=== PATIENT | male | born 1950 | race Caucasian/White ===

== ENCOUNTER 2020-03-10 08:18 | Inpatient (IN) | payer MEDICARE, BC ==
[2020-03-10] VITALS (12 sets, daily range): BP systolic 75–117; BP diastolic 33–70
[~2020-03-10] VITALS: Ht 185.4 cm; Wt 155.1 kg
--- NOTE | 2020-03-10 08:33 | NUR ---
PT REC'D TO ER VIA EMS PT SINCE 0500 THIS MORNING COUGHING UP COFFEE GROUND AND STOOLS DARK RED , PRE DIABETIC AND HAS A STENT ON ELIQUIS.LEFT AC IV INFUSING NS AWAITING EVALUATION BY ER PROVIDER.
--- NOTE | 2020-03-10 08:43 | NUR ---
PT HAS SLEEP APNEA CPAP +. ACCU CK 260
[2020-03-10 08:58] LABS: BASOPHILS # (AUTO) 0.2 /CMM (0.0-0.2); BASOPHILS % (AUTO) 1.2 % (0.0-2.0); HEMATOCRIT 31 % (39-51); HEMOGLOBIN 9.5 g/dL (13.5-17.5); LYMPHOCYTES # (AUTO) 1.2 /CMM (0.8-4.8); LYMPHOCYTES % (AUTO) 6.8 % (20.0-44.0); MEAN CORPUSCULAR HGB CONC 31 g/dl (31.0-36.0); MEAN CORPUSCULAR VOLUME 90 fL (80-96); MONOCYTES # (AUTO) 0.5 /CMM (0.1-1.30); MONOCYTES % (AUTO) 2.8 % (2.0-12.0); NEUTROPHILS # (AUTO) 15.3 /CMM (1.8-8.9); NEUTROPHILS % (AUTO) 89.2 % (43.0-81.0); PLATELET COUNT (AUTO) 290 /CMM (150-450); RED BLOOD CELL COUNT(AUTO) 3.41 MIL/uL (4.5-6.0); WHITE BLOOD COUNT (AUTO) 17.1 K/uL (4.3-11.0)
[2020-03-10] MEDS ORDERED: ONDANSETRON HCL/PF 4 MG/2 ML VIAL ONE ×2 (08:59→10:32)
[2020-03-10] MEDS ORDERED: OCTREOTIDE 1,250 MCG in IV NS 0.9% 250 ML IV ONE (09:00)
[2020-03-10] MEDS ORDERED: PANTOPRAZOLE 80 MG in IV NS 0.9% 100 ML IV ONE (09:00)
[2020-03-10] MEDS ORDERED: PANTOPRAZOLE 80 MG in IV NS 0.9% 500 ML IV ONE (09:00)
[2020-03-10] MEDS ORDERED: IV NS 0.9% 1,000 ML BAG IV ONE (09:00)
[2020-03-10] MEDS ORDERED: ONDANSETRON HCL/PF 4 MG/2 ML VIAL IVP ONE (09:00)
[2020-03-10] MEDS ORDERED: OCTREOTIDE 50 MCG/ML AMPUL IV ONE (09:00)
[2020-03-10] MEDS ORDERED: AMIO200T5 PO (09:03)
[2020-03-10] MEDS ORDERED: FINA1TAB PO (09:03)
[2020-03-10] MEDS ORDERED: FEBU40TA PO (09:03)
[2020-03-10] MEDS ORDERED: COLC0.6C3 PO (09:03)
[2020-03-10] MEDS ORDERED: MAGN400T8 PO (09:03)
[2020-03-10] MEDS ORDERED: APIX5TAB PO (09:03)
[2020-03-10] MEDS ORDERED: CYAN100096 PO (09:03)
[2020-03-10] MEDS ORDERED: THYR60TA30 PO (09:03)
[2020-03-10] MEDS ORDERED: METH500T4 PO (09:03)
[2020-03-10] MEDS ORDERED: ASPI-1169 PO (09:03)
[2020-03-10] MEDS ORDERED: CHOL500062 PO (09:03)
[2020-03-10] MEDS ORDERED: POTA-88 PO (09:03)
[2020-03-10] MEDS ORDERED: METO2.5T2 PO (09:03)
[2020-03-10] MEDS ORDERED: ATOR80TA PO (09:03)
[2020-03-10] MEDS ORDERED: FURO80TA3 PO (09:03)
[2020-03-10 09:10] LABS: CREATININE 1.6 mg/dL (0.6-1.3); POTASSIUM 4.9 mmol/L (3.5-5.1)
[2020-03-10 09:16] LABS: BILIRUBIN,DIRECT 0.2 mg/dL (0.0-0.2); BILIRUBIN,TOTAL 0.4 mg/dL (0.2-1.0); TOTAL PROTEIN, SERUM 5.7 g/dL (6.4-8.2)
--- NOTE | 2020-03-10 09:33 | NUR ---
CALLED GI DR. SHANKS LEFT MSG. [phone]
--- NOTE | 2020-03-10 10:01 | NUR ---
[facility] CALLED BELT FIXER PAGED.
--- NOTE | 2020-03-10 10:11 | NUR ---
pt stated feeling better hct 9.5
[2020-03-10] MEDS ORDERED: MORPHINE SULFATE INJ 2 MG/ML DISP.SYRIN IV ONE (11:00)
[2020-03-10] MEDS ORDERED: MORPHINE SULFATE INJ 2 MG/ML DISP.SYRIN IV PRN (11:00)
[2020-03-10] MEDS ORDERED: MORPHINE SULFATE INJ 4 MG/ML DISP.SYRIN ONE (11:00)
[2020-03-10] MEDS ORDERED: MAG HYDROX/AL HYDROX/SIMETH 30 ML UDC PO PRN (11:00)
[2020-03-10] MEDS ORDERED: Z GUARD REMEDY 2 OZ OINT TP PRN (11:00)
[2020-03-10] MEDS ORDERED: MAGNESIUM HYDROXIDE 30 ML UDC PO PRN (11:00)
[2020-03-10] MEDS ORDERED: ZOLPIDEM TARTRATE 5 MG TABLET PO PRN (11:00)
[2020-03-10] MEDS ORDERED: ONDANSETRON HCL/PF 4 MG/2 ML VIAL IVP PRN (11:00)
[2020-03-10] MEDS ORDERED: IV D5/0.45 NACL 1,000 ML IV PRN (11:00)
[2020-03-10] MEDS ORDERED: ACETAMINOPHEN 325 MG TABLET PO PRN (11:00)
[2020-03-10] MEDS ORDERED: HYDROCODONE/APAP 5/325MG TABLET PO PRN (11:00)
[2020-03-10 11:10] LABS: HEMOGLOBIN 9.4 g/dL (13.5-17.5)
--- NOTE | 2020-03-10 11:11 | NUR ---
iv started left hand 20 g
--- NOTE | 2020-03-10 12:37 | NUR ---
RECEIVED CALL FROM LAB, PT IS COVID NEGATIVE
--- NOTE | 2020-03-10 12:39 | NUR ---
pt is covid 19 negitive preping for egd today
--- NOTE | 2020-03-10 12:48 | NUR ---
pt sent to gi lab for egd
[2020-03-10] MEDS ORDERED: METOCLOPRAMIDE HCL 10 MG/2 ML VIAL ONE (12:56)
--- NOTE | 2020-03-10 13:55 | NUR ---
pt had egd sent to [facility]
[2020-03-10] MEDS ORDERED: ALBUMIN 5% 250 ML IV ONE ×2 (14:29→15:10)
[2020-03-10] MEDS ORDERED: PROPOFOL 100 ML ONE ×2 (15:07→16:51)
[2020-03-10 15:38] LABS: HEMOGLOBIN 7.6 g/dL (13.5-17.5)
[2020-03-10] MEDS ORDERED: PHENYLEPHRINE 10 MG/ML VIAL ONE (16:49)
--- NOTE | 2020-03-10 17:00 | NUR ---
ICU ADMIT FROM OR REPORT RECEIVED AT BEDSIDE FROM JIMBO ZAZUETA. PATIENT UNABLE TO BE ORIENTED TO PRIMARY RN, UNIT, ROOM, BED, AND UNIT POLICIES REGARDING PATIENT CARE AND VISITING HOURS. PATIENT NOW ON CONTINUOUS TELEMETRY MONITORING; READING ON ARRIVAL IS SR WITH 1ST DEGREE AV BLOCK 64. INTUBATED ON BEDSIDE VENTILATOR: RATE 16, TV 500, 02%40 PEEP 5. CONNECTED TO BEDSIDE COMBATANT DIVER OFFICER. IV AT RH 20G PATENT. IV AT LAC 20 G RUNNING MATEO AT 3 MCG/KG/MIN/ AND PROPOFOL @60 ML/HR. PT. EYES CLOSE AND CALM. NO GRIMACE SEEN. WILL CONTINUE PLAN OF CARE. Addendum: 03/10/20 at 2123 by MARY GRACE LENNON RN PROPOFOL @60 MCG/HR
[2020-03-10] MEDS: PROPOFOL 100 ML IV PRN ×5 (17:15→23:47)
--- NOTE | 2020-03-10 17:15 | NUR ---
LETICIA SIMULATION TECH AT BEDSIDE Addendum: 03/10/20 at 2108 by MARY GRACE LENNON RN BLOOD TRANSFUSION COMMENCED
--- NOTE | 2020-03-10 17:30 | NUR ---
DR MANZANARES AT BEDSIDE
[2020-03-10 18:47] LABS: ABG BASE EXCESS -8.6 mmol/L; ABG OXYGEN SATURATION 97.3 % (92.0-98.5); ABG PCO2 35.3 mmHg (35.0-45.0); ABG PO2 116.9 mmHg (75.0-100.0); AaDO2 127.7 mmHg; COHb 0.3 % (0.5-1.5); MetHb 0.2 % (0.0-1.5); O2Hb 96.8 % (94.0-97.0); PEEP,BG 5 cm H2O; SITE, ABG Left Radial; VENT MODE, BG AC 40%; VT, ABG 500 mL
[2020-03-10] MEDS ORDERED: PHENYLEPHRINE 50 MG in IV NS 0.9% 245 ML IV PRN (19:00)
--- NOTE | 2020-03-10 19:30 | NUR ---
RN OPENING NOTES RECEIVED PT IN BED. SEDATED AND INTUBATED. ON AC 18 TV 500 FIO2 40% PEEP OF 55. PT IS NOT IN ANY DISTRESS OR EXPERIENCING ANY SOB AT THIS TIME. NSR 62 ON TELE MONITORING. CURRENTLY TRANSFUSING BLOOD, ON MATEO AT 3MCG AND PROPOFOL AT 60MCG/KG/MIN. IV SITE LEFT AC AND RIGHT HAND PATENT FLUSHED. SAFETY MEASURES IN PLACE. HOB ELEVATED SIDE RAILS UP X2 BED LOCKED IN LOWEST POSITION WILL CONTINUE TO MONITOR.
[2020-03-10] MEDS: PHENYLEPHRINE 50 MG in IV NS 0.9% 245 ML IV PRN (20:42)
[2020-03-10] MEDS ORDERED: PANTOPRAZOLE 40 MG VIAL IV SCH (21:00)
[2020-03-10] MEDS ORDERED: PANTOPRAZOLE 80 MG in IV NS 0.9% 500 ML IV SCH (21:00)
--- NOTE | 2020-03-10 21:09 | NUR ---
CHANGE OF SHIFT REPORT PT RESTING COMFORTABLY IN BED. NO S/S OR C/O PAIN OR DISTRESS NOTED. SIDE RAILS UP X2, CALL LIGHT LEFT WITHIN REACH. PT KEPT CLEAN, DRY, AND COMFORTABLE. NO SIGNIFICANT CHANGES SINCE ADMISSION. REPORT GIVEN TO LATRELL ZAZUETA.
--- NOTE | 2020-03-10 21:20 | NUR ---
REPORT GIVEN TO YOANDY ZAZUETA FOR CONTINUATION OF CARE
[2020-03-10 21:48] LABS: HEMOGLOBIN 9.9 g/dL (13.5-17.5)
[2020-03-10 22:10] LABS: THYROID STIMULATING HORMONE 0.882 uIU/mL (0.358-3.74)
--- NOTE | 2020-03-10 22:42 | NUR ---
16FR CHANDRA CATH INSERTED, DRAINING CLEAR YELLOW URINE TO GRAVITY
[2020-03-10] MEDS ORDERED: NOREPINEPHRINE 4 MG/4 ML AMPUL IV ONE (22:46)
--- NOTE | 2020-03-10 22:52 | NUR ---
PT STARTED ON LEVOPHED SINGLE STRENGTH PER TELEPHONE ORDER FROM FRANCES PAULINO D/T HYPOTENSION. STARTED AT 0.1MCG/KG/MIN.
[2020-03-10] MEDS: NOREPINEPHRINE 8 MG in IV NS 0.9% 242 ML IV PRN (22:58)
--- NOTE | 2020-03-10 23:35 | NUR ---
FRANCES PAULINO AT BEDSIDE TO JOSIE PT
[2020-03-10] MEDS: METOCLOPRAMIDE HCL 10 MG/2 ML VIAL IV SCH (23:47)
[2020-03-10] MEDS: PANTOPRAZOLE 40 MG VIAL IV SCH (23:47)
[2020-03-11] VITALS (30 sets, daily range): BP systolic 62–126; BP diastolic 44–70
[2020-03-11] MEDS: ERYTHROMYCIN 250 MG in IV NS 0.9% 100 ML IV SCH ×5 (00:02→22:31)
[2020-03-11] MEDS: PHENYLEPHRINE 50 MG in IV NS 0.9% 245 ML IV PRN ×5 (00:33→12:06)
[2020-03-11] MEDS: PROPOFOL 100 ML IV PRN ×9 (01:30→22:10)
[2020-03-11] MEDS ORDERED: PHENYLEPHRINE 10 MG/ML VIAL ONE (02:16)
[2020-03-11] MEDS ORDERED: NOREPINEPHRINE 8MG/250ML RTU 250 ML IV ONE (02:17)
--- NOTE | 2020-03-11 03:02 | NUR ---
PT HAD VERY LARGE AMOUNT OF BLACK TARRY STOOLS, SMELLED OF GI BLEED. FULL BED BATH GIVEN AND COMPLETE LINENS CHANGED.
[2020-03-11] MEDS: NOREPINEPHRINE 8 MG in IV NS 0.9% 242 ML IV PRN (03:29)
[2020-03-11] MEDS ORDERED: OCTREOTIDE 100 MCG/ML VIAL ONE (05:03)
[2020-03-11] MEDS ORDERED: OCTREOTIDE 500 MCG/ML VIAL ONE (05:03)
--- NOTE | 2020-03-11 05:30 | NUR ---
UNABLE TO SCAN MEDICATION FOR ORDER SANDOSTATIN DRIP. MED WAS UNAVAILABLE, MIXED BY ER. UNIT CHARGE NURSE MADE AWARE.
[2020-03-11] MEDS: METOCLOPRAMIDE HCL 10 MG/2 ML VIAL IV SCH ×3 (05:48→17:04)
[2020-03-11 07:01] LABS: BASOPHILS % (AUTO) 0.1 % (0.0-2.0); HEMATOCRIT 30 % (39-51); HEMOGLOBIN 9.4 g/dL (13.5-17.5); LYMPHOCYTES # (AUTO) 0.7 /CMM (0.8-4.8); LYMPHOCYTES % (AUTO) 2.8 % (20.0-44.0); MEAN CORPUSCULAR HGB CONC 32 g/dl (31.0-36.0); MEAN CORPUSCULAR VOLUME 91 fL (80-96); MONOCYTES # (AUTO) 1.6 /CMM (0.1-1.30); MONOCYTES % (AUTO) 6.4 % (2.0-12.0); NEUTROPHILS # (AUTO) 21.9 /CMM (1.8-8.9); NEUTROPHILS % (AUTO) 90.7 % (43.0-81.0); PLATELET COUNT (AUTO) 233 /CMM (150-450); RED BLOOD CELL COUNT(AUTO) 3.26 MIL/uL (4.5-6.0); WHITE BLOOD COUNT (AUTO) 24.1 K/uL (4.3-11.0)
[2020-03-11 07:28] LABS: CALCIUM, SERUM 7.8 mg/dL (8.5-10.1); CREATININE 2.1 mg/dL (0.6-1.3); MAGNESIUM 1.8 mg/dL (1.8-2.4); PHOSPHORUS 4.2 mg/dL (2.5-4.9); POTASSIUM 5.3 mmol/L (3.5-5.1)
--- NOTE | 2020-03-11 07:45 | NUR ---
RN CLOSING NOTES PT IS STILL SEDATED AND ON VENT SETTINGS BEFORE, NO CHANGES MADE. PT TOLERATING WELL NO SOB NOTED OR RESP DISTRESS. BREATHING IS EVEN AND UNLABORED AT THIS TIME. PT CURRENTLY ON MONITORING WITH NSR WITH 1ST DEGREE AV BLOCK BASELINE TO PT. PT ON PROPOFOL AT 60 MCG/KG/MIN AND LEVO AT 0.2MCG/KG/MIN AND MATEO AT 3MCG/KG/MIN. SBP KEPT WNL OF PARAMETERS ORDERED. SAFETY MEASURES IN PLACE, HOB ELEVATED SIDE RAILS UP X2, BED LOCKED IN LOWEST POSITION, REPORT GIVEN TO AM NURSE FOR CONTINUATION OF CARE
--- NOTE | 2020-03-11 08:00 | NUR ---
RN OPENING NOTES PT IS SEDATED AND ON VENT SETTINGS BEFORE, PT TOLERATING WELL NO SOB NOTED OR RESP DISTRESS. BREATHING IS EVEN AND UNLABORED AT THIS TIME. PT CURRENTLY ON MONITORING WITH NSR WITH 1ST DEGREE AV BLOCK BASELINE TO PT. PT ON PROPOFOL AT 60 MCG/KG/MIN AND MATEO AT 3MCG/KG/MIN WIH 100 CONCENTRATION PER LAB. SAFETY MEASURES IN PLACE, HOB ELEVATED SIDE RAILS UP X2, BED LOCKED IN LOWEST POSITION, WILL CONTINUE TO MONITOR
[2020-03-11 08:10] LABS: THYROID STIMULATING HORMONE 0.716 uIU/mL (0.358-3.74)
[2020-03-11] MEDS: PANTOPRAZOLE 40 MG VIAL IV SCH ×2 (08:16→22:30)
[2020-03-11] MEDS ORDERED: FURO-144 PO (08:33)
[2020-03-11] MEDS ORDERED: CARV3.122 PO (08:33)
--- NOTE | 2020-03-11 09:31 | NUR ---
RN NOTES PEEP OF 0
[2020-03-11 11:30] LABS: HEMOGLOBIN 8.8 g/dL (13.5-17.5)
[2020-03-11] MEDS: IV NS 0.9% 1,000 ML IV PRN ×3 (12:12→22:33)
[2020-03-11] MEDS ORDERED: BACITRACIN OPHTH OINT 3.5 GM TUBE ONE (12:20)
[2020-03-11] MEDS ORDERED: PHENYLEPHRINE 10 MG/ML VIAL IV SCH (12:30)
--- NOTE | 2020-03-11 12:30 | NUR ---
RN NOTES CONSENT SIGNED VERBALLY HUY CERRATO AND CONFIRMED WITH ANOTHER NURSE PAO
--- NOTE | 2020-03-11 13:45 | NUR ---
RN NOTES BP IS STABLE DUE TO MATEO OF 3 MCG. PT IS TAKEN TO OR FOR EGD WITH POSSIBLE BIOPSY
--- NOTE | 2020-03-11 16:00 | NUR ---
RN NOTES VERBAL AGREEMENT FOR PICC LINE INSERTION Tyrone MARIO
[2020-03-11] MEDS: NS 0.9% IV PRN ×2 (17:57→22:09)
[2020-03-11] MEDS: PHENYLEPHRINE IV PRN ×2 (17:57→22:09)
--- NOTE | 2020-03-11 19:54 | NUR ---
RN CLOSING NOTES PT IS STILL SEDATED AND ON VENT SETTINGS BEFORE, NO CHANGES MADE. PT TOLERATING WELL NO SOB NOTED OR RESP DISTRESS. BREATHING IS EVEN AND UNLABORED AT THIS TIME. PT CURRENTLY ON MONITORING WITH NSR WITH 1ST DEGREE AV BLOCK BASELINE TO PT. PT ON PROPOFOL AT 60 MCG/KG/MIN AND MATEO AT 3MCG/KG/MIN. SBP KEPT WNL OF PARAMETERS ORDERED. SAFETY MEASURES IN PLACE, HOB ELEVATED SIDE RAILS UP X2, BED LOCKED IN LOWEST POSITION, REPORT GIVEN TO PM NURSE FOR SHANTANU
[2020-03-11 21:20] LABS: HEMOGLOBIN 8.3 g/dL (13.5-17.5)
[2020-03-12] VITALS (27 sets, daily range): BP systolic 71–125; BP diastolic 32–54
[2020-03-12] MEDS: METOCLOPRAMIDE HCL 10 MG/2 ML VIAL IV SCH ×4 (00:44→17:23)
[2020-03-12] MEDS: NS 0.9% IV PRN ×4 (01:22→20:16)
[2020-03-12] MEDS: PHENYLEPHRINE IV PRN ×4 (01:22→20:16)
[2020-03-12] MEDS: NOREPINEPHRINE 8 MG in IV NS 0.9% 242 ML IV PRN (01:28)
[2020-03-12] MEDS ORDERED: PHENYLEPHRINE 10 MG/ML VIAL ONE (01:41)
[2020-03-12] MEDS ORDERED: NOREPINEPHRINE 4 MG/4 ML AMPUL IV ONE (01:42)
[2020-03-12] MEDS: PROPOFOL 100 ML IV PRN ×11 (02:03→22:46)
[2020-03-12] MEDS: IV NS 0.9% 1,000 ML IV PRN ×4 (03:46→19:28)
--- NOTE | 2020-03-12 04:15 | NUR ---
RN NOTES/CHARGE PT. IS ON DIPRIVAN, GOT A RESTRAINTS ORDER FROM FRANCES MCDONOUGH, ORDER NOTED AND CARRIED OUT
[2020-03-12] MEDS: ERYTHROMYCIN 250 MG in IV NS 0.9% 100 ML IV SCH ×2 (06:02→10:48)
--- NOTE | 2020-03-12 07:47 | NUR ---
RN notes In bed resting comfortably with no distress noted. Breathing even and unlabored. Vent setting well tolerated. Sedated, on diprivan drip started at 60mcg/kg/min and was able to titrate to 25mcg/kg/min. No adverse effects noted. Patient on wrist restraint, released every two hours for hygiene, circulation and repositioning. On herminio drip started at 3mcg/kg/min, titrate to 2.5 with additional levoped at 0.5mcg/kg/min to maintain SBP =>90. No ill effects noted. No physical manifestation of pain or discomfort. kept clean and dry. Will endorse to next shift for continuity of care.
[2020-03-12] MEDS: PANTOPRAZOLE 40 MG VIAL IV SCH ×2 (10:49→21:07)
--- NOTE | 2020-03-12 11:00 | NUR ---
RN NOTES RECEIVED ICU PATIENT AT 1100, ON VENT, INTUBATED. PATIENT SEDATED ON PROPOFOL, AT 35mcg/kg/min. IV FLUID RUNNING AT 250ml/hr. CHANDRA CATHETER INTACT AND FLOWING URINE BY GRAVITY. ON MATEO AT 2.5mcg/kg/min. PATIENT BILATERAL SOFT WRIST IN PLACE, AND ADEQUATE CIRCULATION NOTED. SAFETY PRECAUTIONS IMPLEMENTED WITH BED LOCKED, BILATERAL SIDE RAILS UP, HOB RAISED, AND BED ALARM ON. WILL CONTINUE TO MONITOR PATIENT.
[2020-03-12 11:17] LABS: ALBUMIN 1.6 g/dL (3.4-5.0); BILIRUBIN,TOTAL 0.6 mg/dL (0.2-1.0); CALCIUM, SERUM 7.1 mg/dL (8.5-10.1); MAGNESIUM 1.7 mg/dL (1.8-2.4); PHOSPHORUS 4.9 mg/dL (2.5-4.9); POTASSIUM 4.4 mmol/L (3.5-5.1); TOTAL PROTEIN, SERUM 4.9 g/dL (6.4-8.2)
[2020-03-12 13:01] LABS: BASOPHILS # (AUTO) 0.1 /CMM (0.0-0.2); BASOPHILS % (AUTO) 0.5 % (0.0-2.0); EOSINOPHILS % (AUTO) 0.7 % (0.0-6.0); HEMATOCRIT 27 % (39-51); HEMOGLOBIN 8.2 g/dL (13.5-17.5); LYMPHOCYTES % (AUTO) 5.4 % (20.0-44.0); MEAN CORPUSCULAR HGB CONC 31 g/dl (31.0-36.0); MEAN CORPUSCULAR VOLUME 92 fL (80-96); MONOCYTES # (AUTO) 1.2 /CMM (0.1-1.30); MONOCYTES % (AUTO) 6.7 % (2.0-12.0); NEUTROPHILS # (AUTO) 16.1 /CMM (1.8-8.9); NEUTROPHILS % (AUTO) 86.7 % (43.0-81.0); PLATELET COUNT (AUTO) 165 /CMM (150-450); RED BLOOD CELL COUNT(AUTO) 2.91 MIL/uL (4.5-6.0); WHITE BLOOD COUNT (AUTO) 18.6 K/uL (4.3-11.0)
[2020-03-12] MEDS ORDERED: Magnesium 1GM/D5W 100ML PREMIX 100 ML IV SCH (15:00)
--- NOTE | 2020-03-12 16:00 | NUR ---
RN NOTES RECEIVED BEDSIDE REPORT, PATIENT SEDATED ON PROPOFOL 50 MCG/KG/MIN. ON VENT TOLERATING SETTING WELL WITH NO SIGNS OF DISTRESS NOTED AT THIS TIME. ON PRESSOR MATEO 2.5MCG/KG/MIN, BP STILL LOW, WILL TITRATE PER PROTOCOL. CHANDRA CATHETER INTACT AND PATENT DRAINING FREELY VIA GRAVITY WITH CLEAR YELLOW URINE. NOTED WITH SOFT WRIST B/L RESTRAINT. CIRCULATION CHECKED, SAFETY MEASURES IN PLACE. WILL CONTINUE TO MONITOR.
[2020-03-12] MEDS: NOREPINEPHRINE 32 MG in IV NS 0.9% 218 ML IV PRN ×2 (17:11→22:45)
--- NOTE | 2020-03-12 18:00 | NUR ---
RN NOTES TRASFERRED PATIENT TO ICU RM 253 VIA HOSPITAL BED WITH 2 RT, BEDSIDE REPORT GIVEN TO MARBIN MARTINEZ. PATIENT IN NO SIGNS OF DISTRESS. BELONGINGS AND MEDICATION TRANSFERRED WITH PATIENT.
[2020-03-12 20:10] LABS: ABG PCO2 46.1 mmHg (35.0-45.0); ABG PH 7.073 (7.350-7.450); ABG PO2 48.1 mmHg (75.0-100.0); AaDO2 618.8 mmHg; MetHb 0.4 % (0.0-1.5); O2Hb 74.9 % (94.0-97.0); SITE, ABG Right Radial; VENT MODE, BG AC 16 500 100% +0
--- NOTE | 2020-03-12 20:12 | NUR ---
RECEIVED PT INTUBATED ON VENT. O2 SAT 74% ON 100% FIO2. STAT ABG DONE. NOTIFIED PATRICIO ZAZUETA WITH THE RESULT.
--- NOTE | 2020-03-12 20:45 | NUR ---
RATE CHANGED PER SENIOR FINANCIAL REPORTING ANALYST FRANCES.
[2020-03-12] MEDS ORDERED: SODIUM BICARBONATE SYR 50 MEQ/50 ML DISP.SYRIN IV ONE (21:00)
[2020-03-12] MEDS: Sodium Bicarbonate 100 MEQ in IV D5W 1,000 ML IV PRN (21:03)
[2020-03-12 21:37] LABS: HEMOGLOBIN 6.7 g/dL (13.5-17.5)
[2020-03-12 22:38] LABS: ABG OXYGEN SATURATION 73.5 % (92.0-98.5); ABG PCO2 42.6 mmHg (35.0-45.0); ABG PH 7.094 (7.350-7.450); ABG PO2 42.7 mmHg (75.0-100.0); AaDO2 627.7 mmHg; COHb 0.3 % (0.5-1.5); MetHb 0.3 % (0.0-1.5); O2Hb 73.1 % (94.0-97.0); SITE, ABG Right Radial
--- NOTE | 2020-03-12 22:39 | NUR ---
G DONE. NOTIFIED MARBIN CURRY WITH RESULT.
[2020-03-13] VITALS (55 sets, daily range): BP systolic 32–128; BP diastolic 20–91
[2020-03-13] MEDS ORDERED: ALBUMIN 25% 25 GM in PREMIX 1 EA IV SCH ×2
[2020-03-13] MEDS: PROPOFOL 100 ML IV PRN ×5 (01:00→11:50)
[2020-03-13] MEDS: NOREPINEPHRINE 32 MG in IV NS 0.9% 218 ML IV PRN ×3 (02:56→11:15)
[2020-03-13] MEDS ORDERED: SODIUM BICARBONATE SYR 50 MEQ/50 ML DISP.SYRIN ONE (03:03)
[2020-03-13] MEDS ORDERED: ALBUMIN 25% 100 ML IV ONE (03:03)
[2020-03-13 04:48] LABS: BASOPHILS # (AUTO) 0.2 /CMM (0.0-0.2); BASOPHILS % (AUTO) 0.6 % (0.0-2.0); EOSINOPHILS % (AUTO) 3.3 % (0.0-6.0); HEMATOCRIT 27 % (39-51); HEMOGLOBIN 8.3 g/dL (13.5-17.5); LYMPHOCYTES # (AUTO) 1.4 /CMM (0.8-4.8); LYMPHOCYTES % (AUTO) 5.4 % (20.0-44.0); MEAN CORPUSCULAR HGB CONC 31 g/dl (31.0-36.0); MEAN CORPUSCULAR VOLUME 97 fL (80-96); MONOCYTES # (AUTO) 1.1 /CMM (0.1-1.30); MONOCYTES % (AUTO) 4.6 % (2.0-12.0); NEUTROPHILS # (AUTO) 21.5 /CMM (1.8-8.9); NEUTROPHILS % (AUTO) 86.1 % (43.0-81.0); PLATELET COUNT (AUTO) 182 /CMM (150-450); RED BLOOD CELL COUNT(AUTO) 2.81 MIL/uL (4.5-6.0)
[2020-03-13 04:57] LABS: ALBUMIN 1.8 g/dL (3.4-5.0); CALCIUM, SERUM 7.1 mg/dL (8.5-10.1); CREATININE 3.1 mg/dL (0.6-1.3); MAGNESIUM 1.9 mg/dL (1.8-2.4); PHOSPHORUS 5.7 mg/dL (2.5-4.9); POTASSIUM 4.2 mmol/L (3.5-5.1)
--- NOTE | 2020-03-13 06:18 | NUR ---
advised grease monkey DIESEL ROLLER OPERATOR Jalyn Calvillo about critical labs of bun and Trop. Orders are to monitor for now.
--- NOTE | 2020-03-13 07:40 | NUR ---
RT PATIENT REC'D ORALLY INTUBATED ON [facility] VENT IN CRITICAL CONDITION. VENT SETTINGS AND ALARMS CHECKED. ETT SECURE AND PATENT. VENT PLUGGED INTO RED OUTLET. PT SX'D. Addendum: 03/13/20 at 1548 by ELVA QUIROZ RT Amended: Links added.
--- NOTE | 2020-03-13 07:45 | NUR ---
RT PER DR REYNOSO VT INCREASED TO 550 Addendum: 03/13/20 at 1012 by ELVA QUIROZ RT Amended: Links added.
[2020-03-13] MEDS ORDERED: IV NS 0.9% 500 ML BAG IV ONE (09:00)
[2020-03-13] MEDS ORDERED: SODIUM BICARBONATE SYR 50 MEQ/50 ML DISP.SYRIN IV ONE ×2 (09:00)
[2020-03-13] MEDS: PANTOPRAZOLE 40 MG VIAL IV SCH (09:35)
[2020-03-13] MEDS: NS 0.9% IV PRN (11:14)
[2020-03-13] MEDS: PHENYLEPHRINE IV PRN (11:14)
[2020-03-13 11:15] LABS: HEMOGLOBIN 8.6 g/dL (13.5-17.5)
[2020-03-13] MEDS: Sodium Bicarbonate 100 MEQ in IV D5W 1,000 ML IV PRN (13:34)
--- NOTE | 2020-03-13 14:20 | NUR ---
RN NOTE PT DNR STATUS. NOTED PT BECOMING BRADYCARDIC AND HYPOTENSIVE PROGRESSING TO ASYSTOLE. FOUND PT APNEIC, AREFLEXIVE, ASYSTOLIC. PRONOUNCED AT 1420. SPOUSE NOTIFIED BY PHONE. DR PIRES NOTIFIED.
== END 2020-03-13 14:20 | disposition expired | DRG 377 ==
LOC: ER 08:24 → MED 18:01 → TELE 18:27 → ICU 03-12 18:58
PROVIDERS: ADMIT Student in an Organized Health Care Education/Training Program; ATTEND Student in an Organized Health Care Education/Training Program
PROC: 0DJ08ZZ Inspection of Upper Intestinal Tract, Via Natural or Artificial Opening Endoscopic (ICD-10-PCS; principal; 2020-03-10)
PROC: 30233N1 Transfusion of Nonautologous Red Blood Cells into Peripheral Vein, Percutaneous Approach (ICD-10-PCS; 2020-03-10)
PROC: 0BH18EZ Insertion of Endotracheal Airway into Trachea, Via Natural or Artificial Opening Endoscopic (ICD-10-PCS; 2020-03-10)
PROC: 5A1945Z Respiratory Ventilation, 24-96 Consecutive Hours (ICD-10-PCS; 2020-03-10)
PROC: 0DJ08ZZ Inspection of Upper Intestinal Tract, Via Natural or Artificial Opening Endoscopic (ICD-10-PCS; 2020-03-11)
PROC: 02HV33Z Insertion of Infusion Device into Superior Vena Cava, Percutaneous Approach (ICD-10-PCS; 2020-03-11)
PROC: B548ZZA Ultrasonography of Superior Vena Cava, Guidance (ICD-10-PCS; 2020-03-11)
DX: K25.4 Chronic or unspecified gastric ulcer with hemorrhage (principal); N17.0 Acute kidney failure with tubular necrosis; E43 Unspecified severe protein-calorie malnutrition; J96.91 Respiratory failure, unspecified with hypoxia; I21.4 Non-ST elevation (NSTEMI) myocardial infarction; D62 Acute posthemorrhagic anemia; E87.0 Hyperosmolality and hypernatremia; Z68.42 Body mass index [BMI] 45.0-49.9, adult; E86.0 Dehydration; E03.9 Hypothyroidism, unspecified; D72.829 Elevated white blood cell count, unspecified; E66.9 Obesity, unspecified; E78.5 Hyperlipidemia, unspecified; I25.10 Atherosclerotic heart disease of native coronary artery without angina pectoris; Z79.01 Long term (current) use of anticoagulants; Z87.11 Personal history of peptic ulcer disease; I48.91 Unspecified atrial fibrillation; Z79.82 Long term (current) use of aspirin; Z95.5 Presence of coronary angioplasty implant and graft; E88.09 Other disorders of plasma-protein metabolism, not elsewhere classified
CPT/HCPCS: 31720; 36415; 36600; 71045-TC; 80048-TC; 80053-TC; 80061-TC; 80076-TC; 82728-TC; 82803-TC; 83540-TC; 83690-TC; 83735-TC; 84100-TC; 84439-TC; 84443-TC; 84484-TC; 85025-TC; 85027-TC; 85730-TC; 86850-TC; 87081-TC; 93307-TC; 94003-TC; 94760-TC; 94799-TC; 99082-TC; A4216; C1751; C9113; C9803; G0378; J1364; J2270; J2354; J2370; J2405; J2704; J2765; J3475; J3490; J7030; J7040; J7050; J7070; P9016-BL; P9045; P9047